=== PATIENT | male | born 1985 | race Two or more races ===

== ENCOUNTER 2020-10-18 18:55 | Inpatient (IN) | payer MEDICARE ==
[~2020-10-18] VITALS: Ht 180.3 cm; Wt 66.3 kg
[2020-10-18] MEDS ORDERED: LORAZEPAM 2MG/ML CPJ IM STA (21:33)
[2020-10-18] MEDS ORDERED: OLANZAPINE 10 MG/VIAL IM STA (21:33)
[2020-10-18] MEDS ORDERED: SODIUM CHLORIDE 0.9% 1,000 ML IV ONE ×2 (21:45)
[2020-10-18 23:10] LABS: CLARITY URINE CLOUDY (CLEAR); COLOR URINE DARK YELLOW (YELLOW); KETONES URINE 1+ (NEGATIVE); LEUKOCYTE ESTERASE URINE NEGATIVE (NEGATIVE); NITRITE URINE NEGATIVE (NEGATIVE); OCCULT BLOOD URINE 2+ (NEGATIVE); PH URINE 5.5 (4.5-8.0); PROTEIN URINE 2+ (NEGATIVE); SPECIFIC GRAVITY URINE 1.031 (1.005-1.030)
[2020-10-18 23:13] LABS: HEMATOCRIT. 37.7 % (42.0-52.0); MEAN CORPUSCULAR HEMOGLOBIN 32.8 pg (28.0-32.0); MEAN CORPUSCULAR VOLUME 95.2 fL (80.0-94.0); MEAN PLATELET VOLUME 8.8 fl (7.4-10.4); PLATELET 247 x1000/uL (130-400); RED BLOOD CELL COUNT 3.96 mill/uL (4.7-6.1); RED CELL DISTRIBUTION WIDTH 13.4 % (11.6-14.6)
[2020-10-18 23:22] LABS: CHLORIDE 106 mEq/L (98-107)
[2020-10-18 23:26] LABS: ETHANOL BLOOD < 10 mg/dL
[2020-10-18 23:46] LABS: *AMPHETAMINES SCREEN URINE PRESUMTIVE POSITIVE (NEGATIVE); *BARBITURATES SCREEN URINE NEGATIVE (NEGATIVE); *BENZODIAZEPINES SCREEN URINE NEGATIVE (NEGATIVE); *COCAINE SCREEN URINE NEGATIVE (NEGATIVE); METHADONE URINE SCREEN NEGATIVE (NEGATIVE); OPIATES URINE SCREEN NEGATIVE (NEGATIVE)
[2020-10-18 23:48] LABS: CANNABINOID URINE SCREEN NEGATIVE (NEGATIVE); PHENCYCLIDINE URINE SCREEN NEGATIVE (NEGATIVE)
[2020-10-19 00:05] LABS: CREATINE KINASE 5684 IU/L (39-308)
[2020-10-19 04:57] LABS: PLATELET ESTIMATE NORMAL
[2020-10-19] MEDS ORDERED: ONDANSETRON HCL 4MG/2ML INJ IV PRN (08:00)
[2020-10-19] MEDS ORDERED: ACETAMINOPHEN 325MG TABLET PO PRN (08:00)
[2020-10-19] MEDS ORDERED: LORAZEPAM 2MG/ML CPJ IV PRN (08:00)
[2020-10-19] MEDS: SODIUM CHLORIDE 0.45% 1,000 ML IV SCH ×2 (08:15→16:45)
[2020-10-19 09:06] LABS: CREATINE KINASE 10405 IU/L (39-308)
[2020-10-19 10:00] VITALS: BP 124/69
[2020-10-19 10:41] VITALS: BP 121/77
[2020-10-19] MEDS: ENOXAPARIN 40MG/0.4ML SYR SUBCUT SCH (11:44)
[2020-10-19 14:00] VITALS: BP 111/80
[2020-10-19 16:00] VITALS: BP 128/68
[2020-10-19] MEDS: CEFTRIAXONE 1,000 MG in DEXTROSE 5% WATER 50 ML IV SCH (17:50)
[2020-10-19 18:00] VITALS: BP 122/61
[2020-10-19 20:47] VITALS: BP 133/69
[2020-10-20] MEDS: SODIUM CHLORIDE 0.45% 1,000 ML IV SCH ×3 (08:00→16:00)
[2020-10-20] MEDS: ENOXAPARIN 40MG/0.4ML SYR SUBCUT SCH (12:00)
[2020-10-20 16:00] LABS: BASOPHILS % 0.3 % (0.0-2.0); HEMATOCRIT. 36.9 % (42.0-52.0); LYMPHOCYTES % 29.2 % (20.0-50.0); MEAN CORPUSCULAR HEMOGLOBIN 33.9 pg (28.0-32.0); MEAN CORPUSCULAR VOLUME 96.3 fL (80.0-94.0); MEAN PLATELET VOLUME 8.6 fl (7.4-10.4); MONOCYTES % 12.8 % (2.0-8.0); NEUTROPHILS % 56.7 % (40.0-76.0); PLATELET 220 x1000/uL (130-400); RED BLOOD CELL COUNT 3.83 mill/uL (4.7-6.1); RED CELL DISTRIBUTION WIDTH 13.5 % (11.6-14.6)
[2020-10-20 16:13] LABS: CHLORIDE 105 mEq/L (98-107)
[2020-10-20 16:58] LABS: CREATINE KINASE 11960 IU/L (39-308)
[2020-10-20] MEDS: CEFTRIAXONE 1,000 MG in DEXTROSE 5% WATER 50 ML IV SCH (18:00)
== END 2020-10-20 23:58 | disposition left against medical advice (07) | DRG 871 ==
LOC: EDBD 19:55 → ER 19:55 → 5EST 10-19 02:58 → ENRESERV 10-19 07:21
PROVIDERS: ADMIT Internal Medicine; ATTEND Internal Medicine
DX: A41.9 Sepsis, unspecified organism (principal); G92 Toxic encephalopathy; M62.82 Rhabdomyolysis; F15.90 Other stimulant use, unspecified, uncomplicated; Z53.29 Procedure and treatment not carried out because of patient's decision for other reasons; R74.01 Elevation of levels of liver transaminase levels
CPT/HCPCS: 36415; 71045; 80048; 80053; 80305; 80307; 80320; 80329; 81003; 82550; 83605; 84145; 84443; 85025; 99285; J0696; J1650; J2060; J3490; J7030; J7060; G0480

== ENCOUNTER 2020-10-26 13:17 | Emergency (ER) | payer MEDICARE ==
[~2020-10-26] VITALS: Ht 182.9 cm; Wt 77.5 kg
[2020-10-26] MEDS ORDERED: HALOPERIDOL LACTATE 5MG/ML VIAL IM STA (16:33)
[2020-10-26] MEDS ORDERED: LORAZEPAM 2MG/ML CPJ IM STA (16:33)
[2020-10-26] MEDS ORDERED: SODIUM CHLORIDE 0.9% 1,000 ML IV ONE (16:45)
[2020-10-26 21:17] LABS: BASOPHILS % 0.3 % (0.0-2.0); CHLORIDE 110 mEq/L (98-107); EOSINOPHILS % 0.2 % (0.0-5.0); HEMATOCRIT. 35.4 % (42.0-52.0); HEMOGLOBIN. 12.4 g/dL (14.0-18.0); LYMPHOCYTES % 16.2 % (20.0-50.0); MEAN CORPUSCULAR HEMOGLOBIN 33.3 pg (28.0-32.0); MEAN CORPUSCULAR VOLUME 95.3 fL (80.0-94.0); MEAN PLATELET VOLUME 8.2 fl (7.4-10.4); NEUTROPHILS % 75.3 % (40.0-76.0); PLATELET 234 x1000/uL (130-400); RED BLOOD CELL COUNT 3.71 mill/uL (4.7-6.1); RED CELL DISTRIBUTION WIDTH 13.5 % (11.6-14.6)
[2020-10-26 21:21] LABS: ETHANOL BLOOD < 10 mg/dL
[2020-10-26] MEDS ORDERED: POTASSIUM CHLORIDE 20MEQ TABLET SR PO NR (22:00)
[2020-10-27 00:19] VITALS: BP 109/58
== END 2020-10-27 00:33 | disposition home or self-care (01) ==
LOC: ER 13:17
DX: F15.188 Other stimulant abuse with other stimulant-induced disorder (principal); R00.0 Tachycardia, unspecified; R45.1 Restlessness and agitation; E87.6 Hypokalemia; R03.0 Elevated blood-pressure reading, without diagnosis of hypertension; Z71.51 Drug abuse counseling and surveillance of drug abuser; S20.311A Abrasion of right front wall of thorax, initial encounter; X58.XXXA Exposure to other specified factors, initial encounter; Y93.9 Activity, unspecified; Y92.9 Unspecified place or not applicable; Z78.1 Physical restraint status
CPT/HCPCS: 36415; 70450; 71045; 80053; 80320; 82962; 85025; 93005; 96360; 99285; J7030; G0480